=== PATIENT | female | born 1935 | race Caucasian/White ===

== ENCOUNTER 2016-06-01 09:18 | Emergency (ER) | payer OTHER, MEDICARE ==
[~2016-06-01] VITALS: Ht 167.6 cm; Wt 63.5 kg
--- NOTE | ~2016-06-01 | EKG ---
[address] [place] [address] ELECTROCARDIOGRAM REPORT Name: DANAARAVINDARAMIS AMOS Room #: DEP Flash#: [id number] Admission: 06/01/16 Attend Phys: Discharge: 06/01/16 Date of : 31 Report #: [id number] THIS REPORT FOR: //name// [facility] ED Test Date: 2016-06-01 Test Time: 09:55:24 Pat Name: ARAVIND CORTEZ Department: Room: Gender: F Hematologist: David WOO : 1935 Requested By: Jesus Duffy Order Number: [id number] MD: Joey Gilliam Measurements Intervals [place] Rate: 74 P: 7 ID: 173 QRS: 20 QRSD: 87 T: 26 QT: 377 QTc: 419 Interpretive Statements Sinus rhythm Multiple ventricular premature complexes Left ventricular hypertrophy Compared to ECG 05/23/2016 12:30:05 Ventricular premature complex(es) now present Electronically Signed On 06-01-2016 14:58:03 TRANSITIONAL LIVING SPECIALIST by Joey Gilliam [email or web address] <ELECTRONICALLY SIGNED> By: Joey Gilliam MD 06/01/16 1458 Joey Gilliam MD /ALBERTO
[~2016-06-01 09:18] MED LIST: BUTALB-APAP-CA1 EACH PO; CARDIZEM CD180 MG PO; CLONIDINE0.1 PO; DYAZIDE 37.5-21 EACH PO; HARD NAILS2500 MCG PO; LEVOXYL100 MCG PO; NORCO 5-325 TA1 EACH PO; NORVASC5 MG PO; XANAX XR1 MG PO
[2016-06-01 10:01] LABS: HEMOGLOBIN 13.7 gm/dL (12.0-15.0); MCH 28.3 pg (26.0-34.0); MCHC 33.3 % (28.0-37.0); MCV 85.1 fL (80.0-100.0); PLATELET COUNT 286 thou/uL (150-400); RBC 4.82 mil/uL (4.20-5.00); RDW 12.9 % (10.5-14.5); WBC 6.6 thou/uL (4.0-11.0)
[2016-06-01 10:03] LABS: MANUAL DIFF YES
[2016-06-01 10:25] LABS: ANION GAP 8 mmol/L (7-16); BUN 15 mg/dL (7-18); CALCIUM 8.8 mg/dL (8.5-10.1); CHLORIDE 109 mmol/L (98-107); CO2 29 mmol/L (21-32); CREATININE 0.7 mg/dL (0.6-1.3); GLUCOSE 111 mg/dL (70-99); POTASSIUM 3.6 mmol/L (3.5-5.1); SODIUM 146 mmol/L (136-145)
[2016-06-01 10:38] LABS: NT-PRO BRAIN NAT PEPTIDE 221 pg/mL (<300); TROPONIN-I < 0.04 ng/mL (<0.04-0.07)
[2016-06-01 12:23] LABS: ABSOLUTE NEUTROPHILS 3.3 thou/uL (1.4-8.2); TOTAL CELL COUNT 100
[2016-06-01 12:24] LABS: BURR CELLS FEW; LARGE PLATELETS FEW; OVALOCYTES FEW
[2016-06-01 14:15] VITALS: BP 137/71
[2016-07-08] MEDS ORDERED: XANAX 0.25 MG0.25 MG PO (16:26)
[2016-07-08] MEDS ORDERED: MAXZIDE-25 MG1 EACH PO (16:26)
[2016-07-08] MEDS ORDERED: TESSALON PERLE100 MG PO (18:25)
[2016-07-14] MEDS ORDERED: TOPROL XL25 MG PO (21:03)
== END 2016-06-01 14:16 | disposition home or self-care (01) ==
LOC: ER 09:18
PROVIDERS: Emergency Medicine
DX: R06.00 Dyspnea, unspecified (principal); F41.9 Anxiety disorder, unspecified; I26.99 Other pulmonary embolism without acute cor pulmonale; I10 Essential (primary) hypertension; E03.9 Hypothyroidism, unspecified; Z90.711 Acquired absence of uterus with remaining cervical stump; Z90.49 Acquired absence of other specified parts of digestive tract; Z88.6 Allergy status to analgesic agent; Z88.1 Allergy status to other antibiotic agents; Z91.041 Radiographic dye allergy status; Z91.040 Latex allergy status

== ENCOUNTER → 2017-04-25 | Outpatient (CLI) | payer OTHER, MEDICARE ==
[~2017-04-25] MED LIST changes: +MAXZIDE-25 MG1 EACH PO; +TESSALON PERLE100 MG PO; +TOPROL XL25 MG PO; +XANAX 0.25 MG0.25 MG PO
== END ==
LOC: RAD 02:40
DX: Z12.31 Encounter for screening mammogram for malignant neoplasm of breast (principal)

== ENCOUNTER 2017-05-28 21:36 | Emergency (ER) | payer OTHER, MEDICARE ==
[~2017-05-28] VITALS: Ht 167.6 cm; Wt 62.6 kg
--- NOTE | ~2017-05-28 | EKG ---
[place] [address] [facility] [employer] [address] ELECTROCARDIOGRAM REPORT Name: ARAVIND CORTEZNE Room #: DEP [id number] Admission: 05/28/17 Attend Phys: Discharge: 05/29/17 Date of : 31 Report #: [id number] THIS REPORT FOR: //name// [facility] ED Test Date: 2017-05-28 Test Time: 22:07:57 Pat Name: ARAVIND CORTEZ Department: Room: Gender: F Computer Patternmaker: VALERIA : 1935 Requested By: Geronimo Ortega Order Number: [id number] MD: Quentin Ambrosio Measurements Intervals [place] Rate: 63 P: 74 W[place]: 185 QRS: 17 QRSD: 88 T: 23 QT: 427 QTc: 438 Interpretive Statements Sinus rhythm Consider left ventricular hypertrophy Compared to ECG 07/14/2016 18:39:41 Ventricular premature complex(es) no longer present Electronically Signed On 05-29-2017 14:31:29 CLAY STRUCTURE BUILDER AND SERVICER by Quentin Ambrosio [email or web address] <ELECTRONICALLY SIGNED> By: Quentin Ambrosio MD, [facility] 05/29/17 1431 D: 12/2206 06 Quentin Ambrosio MD, FACC /EPI
[2017-05-28 22:56] LABS: URINE BILIRUBIN NEGATIVE (Negative); URINE BLOOD NEGATIVE (Negative); URINE CLARITY CLEAR; URINE COLOR YELLOW; URINE GLUCOSE-RANDOM* NEGATIVE (Negative); URINE KETONES NEGATIVE (Negative); URINE LEUKOCYTES-REFLEX NEGATIVE (Negative); URINE NITRITE-REFLEX NEGATIVE (Negative); URINE PROTEIN (DIPSTICK) NEGATIVE (Negative); URINE SPECIFIC GRAVITY 1.015 (1.005-1.035); URINE UROBILINOGEN 0.2 E.U./dl (0.2-1.0)
[2017-05-28 22:59] LABS: ABSOLUTE NEUTROPHILS 3.6 thou/uL (1.4-8.2); BASOPHILS 0.7 % (0.0-2.0); EOSINOPHILS 2.3 % (0.0-3.0); HEMATOCRIT 40.4 % (37.0-47.0); HEMOGLOBIN 13.8 gm/dL (12.0-15.0); LYMPHOCYTES 39.8 % (24.0-44.0); MCH 29.1 pg (26.0-34.0); MCHC 34.3 g/dL (28.0-37.0); MCV 84.8 fL (80.0-100.0); MONOCYTES 9.6 % (1.0-8.0); PLATELET COUNT 269 thou/uL (150-400); POLYS 47.6 % (36.0-66.0); RBC 4.76 mil/uL (4.20-5.00); RDW 12.7 % (10.5-14.5); WBC 7.6 thou/uL (4.0-11.0)
[2017-05-28 23:02] LABS: ANION GAP 11 mmol/L (7-16); BUN 18 mg/dL (7-18); CHLORIDE 106 mmol/L (98-107); CO2 26 mmol/L (21-32); CREATININE 0.7 mg/dL (0.6-1.0); GLUCOSE 113 mg/dL (74-106); POTASSIUM 3.3 mmol/L (3.5-5.1); SODIUM 143 mmol/L (136-145)
[2017-05-28 23:06] LABS: APTT 24.7 Seconds (24.5-32.8); PROTIME 10.3 Seconds (9.3-11.4)
[2017-05-28 23:11] LABS: ALBUMIN 3.4 g/dL (3.4-5.0); SGOT 34 U/L (15-37); SGPT 53 U/L (30-65); TOTAL BILIRUBIN 0.5 mg/dL (<0.1-1.0); TOTAL PROTEIN 6.5 g/dL (6.4-8.2); TROPONIN-I < 0.04 ng/mL (<0.06)
[2017-05-28] MEDS ORDERED: BUTALB-APAP-CA1 EACH PO (23:22)
== END 2017-05-29 00:48 | disposition home or self-care (01) ==
LOC: ER 21:36
PROVIDERS: Emergency Medicine
DX: I10 Essential (primary) hypertension (principal); F41.9 Anxiety disorder, unspecified; R00.2 Palpitations; G44.209 Tension-type headache, unspecified, not intractable

== ENCOUNTER 2018-04-22 20:30 | Emergency (ER) | payer OTHER, MEDICARE ==
[~2018-04-22] VITALS: Ht 167.6 cm; Wt 61.2 kg
--- NOTE | ~2018-04-22 | EKG ---
[address] [place] [employer] [address] ELECTROCARDIOGRAM REPORT Name: DANAARAVIND Room #: DEP Flash#: [id number] Admission: 04/22/18 Attend Phys: Discharge: 04/22/18 Date of : 31 Report #: [id number] THIS REPORT FOR: //name// [facility] ED Test Date: 2018-04-22 Test Time: 20:54:26 Pat Name: ARAVIND CORTEZ Department: Room: Gender: F Manager Radio: ann : 1935 Requested By: Bertha Colorado Order Number: [id number] MD: Victor Manuel Gomez Measurements Intervals [place] Rate: 76 P: 3 NE: 212 QRS: -8 QRSD: 93 T: 40 QT: 398 QTc: 448 Interpretive Statements Sinus rhythm Borderline prolonged NE interval left ventricular hypertrophy Compared to ECG 05/28/2017 22:07:57 No significant changes Electronically Signed On 04-23-2018 23:42:18 SHUTTLECOCK FEATHER TRIMMER by Victor Manuel Gomez [email or web address] <ELECTRONICALLY SIGNED> By: Victor Manuel Gomez MD 04/23/18 2342 2053 53 Victor Manuel Gomez MD /ALBERTO
[2018-04-22 20:58] LABS: ABSOLUTE NEUTROPHILS 3.7 thou/uL (1.4-8.2); BASOPHILS 0.8 % (0.0-2.0); EOSINOPHILS 2.7 % (0.0-3.0); HEMATOCRIT 42.3 % (37.0-47.0); HEMOGLOBIN 14.5 gm/dL (12.0-15.0); LYMPHOCYTES 45.1 % (24.0-44.0); MCH 29.6 pg (26.0-34.0); MCHC 34.3 g/dL (28.0-37.0); MCV 86.3 fL (80.0-100.0); MONOCYTES 9.6 % (1.0-8.0); PLATELET COUNT 297 thou/uL (150-400); POLYS 41.8 % (36.0-66.0); RDW 13.1 % (10.5-14.5); WBC 8.9 thou/uL (4.0-11.0)
[2018-04-22 21:08] LABS: ANION GAP 8 mmol/L (7-16); BUN 21 mg/dL (7-18); CALCIUM 9.6 mg/dL (8.5-10.1); CHLORIDE 104 mmol/L (98-107); CO2 31 mmol/L (21-32); CREATININE 0.7 mg/dL (0.6-1.0); GLUCOSE 109 mg/dL (74-106); POTASSIUM 3.6 mmol/L (3.5-5.1); SODIUM 143 mmol/L (136-145)
[2018-04-22 21:17] LABS: TROPONIN-I <0.06 ng/mL (<0.06)
[2018-04-22 23:35] VITALS: BP 161/71
== END 2018-04-22 23:36 | disposition home or self-care (01) ==
LOC: ER 20:30
PROVIDERS: Emergency Medicine
DX: I10 Essential (primary) hypertension (principal); R51 Headache; E03.9 Hypothyroidism, unspecified; Z88.1 Allergy status to other antibiotic agents; Z88.5 Allergy status to narcotic agent; Z88.6 Allergy status to analgesic agent; Z88.8 Allergy status to other drugs, medicaments and biological substances; Z91.040 Latex allergy status; Z91.041 Radiographic dye allergy status

== ENCOUNTER → 2018-05-03 | Outpatient (CLI) | payer OTHER, MEDICARE | LOC: RAD | DX: Z12.31 Encounter for screening mammogram for malignant neoplasm of breast (principal) ==

== ENCOUNTER 2018-08-14 19:10 | Emergency (ER) | payer OTHER, MEDICARE ==
[~2018-08-14] VITALS: Ht 165.1 cm; Wt 57.1 kg
[2018-08-14 20:29] LABS: ABSOLUTE NEUTROPHILS 3.7 thou/uL (1.4-8.2); BASOPHILS 0.7 % (0.0-2.0); EOSINOPHILS 1.9 % (0.0-3.0); HEMATOCRIT 38.6 % (37.0-47.0); HEMOGLOBIN 13.4 gm/dL (12.0-15.0); LYMPHOCYTES 35.1 % (24.0-44.0); MCH 29.9 pg (26.0-34.0); MCHC 34.6 g/dL (28.0-37.0); MCV 86.2 fL (80.0-100.0); MONOCYTES 10.1 % (1.0-8.0); PLATELET COUNT 277 thou/uL (150-400); POLYS 52.2 % (36.0-66.0); RBC 4.48 mil/uL (4.20-5.00); RDW 12.5 % (10.5-14.5); WBC 7.2 thou/uL (4.0-11.0)
[2018-08-14 20:40] LABS: ANION GAP 7 mmol/L (7-16); BUN 19 mg/dL (7-18); CHLORIDE 103 mmol/L (98-107); CO2 30 mmol/L (21-32); CREATININE 0.7 mg/dL (0.6-1.0); GLUCOSE 109 mg/dL (74-106); POTASSIUM 3.6 mmol/L (3.5-5.1); SODIUM 140 mmol/L (136-145)
[2018-08-14 20:45] LABS: TROPONIN-I <0.06 ng/mL (<0.06)
[2018-08-14 21:43] LABS: URINE BILIRUBIN NEGATIVE (Negative); URINE BLOOD NEGATIVE (Negative); URINE CLARITY CLEAR; URINE COLOR YELLOW; URINE GLUCOSE-RANDOM* NEGATIVE (Negative); URINE KETONES NEGATIVE (Negative); URINE LEUKOCYTES TRACE (Negative); URINE NITRITE NEGATIVE (Negative); URINE PROTEIN (DIPSTICK) NEGATIVE (Negative); URINE UROBILINOGEN 0.2 E.U./dl (0.2-1.0)
[2018-08-15 00:45] VITALS: BP 148/77
--- NOTE | 2018-08-15 09:06 | EKG ---
[address] [address] ELECTROCARDIOGRAM REPORT Name: ARAVIND CORTEZNE [id number] ������������������ Admission: 08/14/18 ������������������ Attend Phys: Discharge: 08/15/18 ������������������ Date of : 31 Report #: [id number] ����������������������������������������������������������������� [id number] THIS REPORT FOR: //name// [facility] ED Test Date: 2018-08-14 Test Time: 20:10:16 Pat Name: ARAVIND CORTEZ Department: Room: Gender: F Mobile Home Set Up Person: SORAYA : 1935 Requested By: Ansley Quintero Order Number: [id number] MD: Quentin Ambrosio Measurements Intervals [place] Rate: 60 P: 68 W[place]: 183 QRS: 4 QRSD: 98 T: 21 QT: 430 QTc: 430 Interpretive Statements Sinus rhythm Atrial premature complex Compared to ECG 04/22/2018 20:54:26 Atrial premature complex(es) now present Electronically Signed On 08-15-2018 9:06:18 CDT by Qeuntin Ambrosio [email or web address] ��������������������������������������������� <ELECTRONICALLY SIGNED> ���������������������������������������� By: Quentin Ambrosio MD, [facility] ��������������������������������������������� 08/15/18905 09 09 Quentin Ambrosio MD, FACC /EPI
== END 2018-08-15 04:36 | disposition home or self-care (01) ==
LOC: ER 19:10
PROVIDERS: Student in an Organized Health Care Education/Training Program
DX: I10 Essential (primary) hypertension (principal); R42 Dizziness and giddiness; F41.9 Anxiety disorder, unspecified; E03.9 Hypothyroidism, unspecified; Z95.5 Presence of coronary angioplasty implant and graft; Z90.711 Acquired absence of uterus with remaining cervical stump; Z90.49 Acquired absence of other specified parts of digestive tract; Z88.1 Allergy status to other antibiotic agents; Z88.6 Allergy status to analgesic agent; Z91.040 Latex allergy status; Z91.041 Radiographic dye allergy status; Z88.8 Allergy status to other drugs, medicaments and biological substances

== ENCOUNTER 2018-12-18 21:52 | Inpatient (IN) | payer OTHER, MEDICARE ==
[~2018-12-18] VITALS: Ht 152.4 cm; Wt 63.5 kg
[2018-12-18 22:15] VITALS: BP 149/70
[2018-12-18 23:56] LABS: ABSOLUTE NEUTROPHILS 3.5 thou/uL (1.4-8.2); BASOPHILS 0.9 % (0.0-2.0); EOSINOPHILS 2.8 % (0.0-3.0); HEMATOCRIT 39.9 % (37.0-47.0); HEMOGLOBIN 13.7 gm/dL (12.0-15.0); LYMPHOCYTES 37.7 % (24.0-44.0); MCH 29.5 pg (26.0-34.0); MCHC 34.3 g/dL (28.0-37.0); MCV 85.8 fL (80.0-100.0); MONOCYTES 11.9 % (1.0-8.0); PLATELET COUNT 286 thou/uL (150-400); POLYS 46.7 % (36.0-66.0); RBC 4.65 mil/uL (4.20-5.00); RDW 13.1 % (10.5-14.5); WBC 7.5 thou/uL (4.0-11.0)
[2018-12-19 00:02] LABS: ANION GAP 5 mmol/L (7-16); BUN 19 mg/dL (7-18); CALCIUM 9.1 mg/dL (8.5-10.1); CHLORIDE 100 mmol/L (98-107); CO2 33 mmol/L (21-32); CREATININE 0.8 mg/dL (0.6-1.0); GLUCOSE 100 mg/dL (74-106); POTASSIUM 3.7 mmol/L (3.5-5.1); SODIUM 138 mmol/L (136-145)
[2018-12-19 00:05] LABS: URINE BILIRUBIN NEGATIVE (Negative); URINE BLOOD 2+ (Negative); URINE CLARITY CLEAR; URINE COLOR YELLOW; URINE GLUCOSE-RANDOM* NEGATIVE (Negative); URINE KETONES NEGATIVE (Negative); URINE NITRITE-REFLEX NEGATIVE (Negative); URINE PROTEIN (DIPSTICK) NEGATIVE (Negative); URINE SPECIFIC GRAVITY <= 1.005 (1.005-1.035); URINE UROBILINOGEN 0.2 E.U./dl (0.2-1.0)
[2018-12-19 00:10] LABS: TROPONIN-I <0.06 ng/mL (<0.06)
[2018-12-19 00:17] LABS: SQUAMOUS 4-10 Moderate /LPF (0-3); URINE LEUKOCYTES-REFLEX 2+ (Negative)
[2018-12-19 00:18] LABS: CASTS None Seen /LPF (None Seen); CRYSTALS None Seen /LPF (None Seen); MUCUS 0-3 Light strn/LPF (None Seen); WBC CLUMPS Moderate (None Seen)
[2018-12-19 03:11] VITALS: BP 175/66
[2018-12-19] MEDS ORDERED: SYNTHROID25 MC1 PO (03:18)
[2018-12-19] MEDS ORDERED: METOPROLOL SUCC50 MG PO (03:19)
[2018-12-19] MEDS ORDERED: TRIAMTERENE-HC1 EAC2 PO (03:22)
[2018-12-19] MEDS ORDERED: XANAX 0.25 MG0.25 MG PO (03:23)
--- NOTE | 2018-12-19 07:53 | NUR ---
ADMITTED FROM ER UNDER 'S CARE. ADMITTED WITH UTI AND WEAKNESS. MED REC COMPLETED AND HOME MEDS STARTED PER [employer] DISPATCHER ONCALL FOR MANI. NO S/S ACUTE DISTRESS NOTED REPORTED AT THIS TIME. CARE STRANSFERRED TO DAY RN AT THIS TIME.
[2018-12-19 08:22] VITALS: BP 134/54
[2018-12-19 09:15] VITALS: BP 136/64
--- NOTE | 2018-12-19 13:25 | NUR ---
Received awake on bed. Due medications given as prescribed- able to swallow tablet w/o difficulty. On room air. A+O. On room air. With NS at 75cc/hr, infusing well at L FA. Falls risk- falls bundle in place. Pt assisted in ADLs. Able to go to the bathroom with walker, gait belt and on stand by assist. Pt seen by Dr Rubalcava this morning. Pt on 2 laxatives, open her bowels 2x- witheld laxatives as pt had soft stools, 2 episodes already since this morning.
[2018-12-19 15:07] VITALS: BP 124/53
--- NOTE | 2018-12-19 15:47 | NUR ---
PT ADMITTED RELATED TO WEAKNESS, UTI. CM REVIEWED CHART AND SPOKE WITH CARE TEAM. CM MET WITH PT AT BEDSIDE THIS DAY. PT IS A&O X4. CM ROLE INTRODCUED. PT INDICATED SHE LIVES ALONE IN AN APARTMENT WITH ELEVATOR ACCESS AND NO STEPS TO ENTER. 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 PT INDICATED NO DME OR HH HX. PT INDICATED HER CONTACT IS MARCIO FERNÁNDEZ HER CPA SHE DIDN'T HAVE HIS NUMBER. PT INDICATED SHE HOPES TO RETURN HOME ONCE MEDICALLY STABLE. CM TO FOLLOW INDICATED WITH DC PLANNING.
[2018-12-19 19:13] VITALS: BP 129/66
[2018-12-20 03:55] VITALS: BP 110/47
[2018-12-20 07:35] VITALS: BP 138/64
--- NOTE | 2018-12-20 07:50 | EKG ---
[address] [place] [address] ELECTROCARDIOGRAM REPORT Name: ARAVIND CORTEZ Room #: 461-P ADM IN M.R.#: [id number] ������������������ Admission: 12/19/18 ������������������ Attend Phys: Carmen Villalba Discharge: ������������������ Date of : 31 Report #: [id number] ����������������������������������������������������������������� [id number] THIS REPORT FOR: //name// [facility] ED Test Date: 2018-12-18 Test Time: 22:20:11 Pat Name: ARAVIND CORTEZ Department: Room: 46 Gender: F Protohistorian: SILVANO : 1935 Requested By: Alfonzo Cruz Order Number: [id number] MD: Quentin Ambrosio Measurements Intervals [place] Rate: 62 P: 48 [place]: 197 QRS: 5 QRSD: 97 T: 36 QT: 417 QTc: 424 Interpretive Statements Sinus rhythm No significant abnormality Compared to ECG 08/14/2018 20:10:16 Atrial premature complex(es) no longer present Electronically Signed On 12-20-2018 7:50:24 CDT by Quentin Ambrosio [email or web address] ��������������������������������������������� <ELECTRONICALLY SIGNED> ���������������������������������������� By: Quentin Ambrosio MD, [facility] ��������������������������������������������� 12/20/18 0750 19 19 Quentin Amrbosio MD, [facility] /EPI
--- NOTE | 2018-12-20 11:58 | NUR ---
Received awake on bed. Due medications given as prescribed- able to swallow tablets w/o difficulty. A+Ox2- oriented to person and place, confused and forgetful. Up with walker, gaitbelt and standby assist. With SL at L FA- intact and flushing well. Falls risk- falls bundle in place. Pt seen by Dr Lloyd- pt mentioned that she wants to go [facility]- Dr Lloyd informed; a/w discharge orders. CM informed, will set up transport once with discharge orders.
[2018-12-20] MEDS ORDERED: MIRALAX17 GM PO (12:14)
[2018-12-20] MEDS ORDERED: CEFDINIR300 MG PO (12:14)
[2018-12-20] MEDS ORDERED: SENNA-TIME S T1 EACH PO (12:14)
[2018-12-20 12:39] VITALS: BP 138/64
--- NOTE | 2018-12-20 13:53 | NUR ---
CARE TEAM INDICATED THAT PT IS MEDICALLY STABLE TO DC HOME THIS DAY. PT INDICATED THAT SHE NEEDS TRANSPORT HOME. PT INDICATED SHE ISN'T COMFORTABLE USING A CAB. CM REQUESTED AND RECIEVED PERMISSION TO ARRANGE TRANSPORT THROUGH [facility]. TRANSPORT IS ARRANGED AND THEY ARRIVED AROUND 1:54PM. NO OTHER CM INTERVENTION INDICATED. CASE CLOSED.
[2018-12-20 15:26] VITALS: BP 138/64
== END 2018-12-20 14:30 | disposition home health service (06) | DRG 690 ==
LOC: ER 21:52 → 4W 12-19 01:30 → EROBS 12-19 01:30 → 4W 12-19 02:29
PROVIDERS: Emergency Medicine; ADMIT Hospitalist
DX: N39.0 Urinary tract infection, site not specified (principal); F41.9 Anxiety disorder, unspecified; I10 Essential (primary) hypertension; E03.9 Hypothyroidism, unspecified; Z60.2 Problems related to living alone; K59.00 Constipation, unspecified; Z90.49 Acquired absence of other specified parts of digestive tract; Z87.310 Personal history of (healed) osteoporosis fracture; Z88.8 Allergy status to other drugs, medicaments and biological substances; Z91.041 Radiographic dye allergy status; Z88.1 Allergy status to other antibiotic agents; Z91.040 Latex allergy status; Z90.711 Acquired absence of uterus with remaining cervical stump; Z79.899 Other long term (current) drug therapy
CPT/HCPCS: 10040

== ENCOUNTER → 2019-05-07 | Outpatient (CLI) | payer OTHER, MEDICARE ==
[~2019-05-07] MED LIST changes: +CEFDINIR300 MG PO; +METOPROLOL SUCC50 MG PO; +MIRALAX17 GM PO; +SENNA-TIME S T1 EACH PO; +SYNTHROID25 MC1 PO; +TRIAMTERENE-HC1 EAC2 PO
== END ==
LOC: RAD 09:46
DX: Z12.31 Encounter for screening mammogram for malignant neoplasm of breast (principal)

== ENCOUNTER → 2019-06-27 | Outpatient (CLI) | payer OTHER, MEDICARE | END | disposition home or self-care (01) | LOC: SJCVCIMAG 10:12 | DX: I65.23 Occlusion and stenosis of bilateral carotid arteries (principal); E78.5 Hyperlipidemia, unspecified; I10 Essential (primary) hypertension; I49.3 Ventricular premature depolarization; F41.1 Generalized anxiety disorder; Z90.710 Acquired absence of both cervix and uterus; Z79.899 Other long term (current) drug therapy ==

== ENCOUNTER 2020-04-07 10:38 | Emergency (ER) | payer OTHER ==
[~2020-04-07] VITALS: Ht 167.6 cm; Wt 59.0 kg
[~2020-04-07 10:38] MED LIST changes: -CARDIZEM CD180 MG PO; +CARTIA XT240 M1 PO
[2020-04-07 10:39] VITALS: BP 141/76
--- NOTE | 2020-04-07 14:11 | EKG ---
[facility] [place] [address] ELECTROCARDIOGRAM REPORT Name: ARAVIND CORTEZ Room #: [facility]#: [id number] Admission: 04/07/20 Attend Phys: Discharge: Date of : 31 Report #: [id number] THIS REPORT FOR: cc: FAM - Family physician unknown FAM - Family physician unknown Danilo Jimenez MD [facility] ~ THIS REPORT FOR: //name// [facility] ED Test Date: 2020-04-07 Test Time: 11:37:30 Pat Name: ARAVIND CORTEZ Department: Room: Gender: F Press Operator [employer]ocks: ANNA : 1935 Requested By: Uzma Ortiz Order Number: [id number] MD: Danilo Jimenez Measurements Intervals [place] Rate: 88 P: 59 [place]: 157 QRS: 59 QRSD: 89 T: 41 QT: 385 QTc: 466 Interpretive Statements Sinus rhythm Compared to ECG 12/18/2018 22:20:11 No significant changes Electronically Signed On 04-07-2020 14:11:24 AUXILIARY OPERATOR by Danilo Jimenez [email or web address] <ELECTRONICALLY SIGNED> By: Danilo Jimenez MD, FACC 04/07/20 1411 1137 36 Danilo Jimenez MD, FACC /EPI
[2020-04-07 14:51] LABS: ABSOLUTE NEUTROPHILS 6.8 thou/uL (1.4-8.2); BASOPHILS 0.6 % (0.0-2.0); EOSINOPHILS 0.6 % (0.0-3.0); HEMATOCRIT 35.4 % (37.0-47.0); LYMPHOCYTES 21.3 % (24.0-44.0); MCH 29.5 pg (26.0-34.0); MCV 86.8 fL (80.0-100.0); MONOCYTES 11.5 % (1.0-8.0); PLATELET COUNT 348 thou/uL (150-400); RBC 4.08 mil/uL (4.20-5.00); RDW 13.1 % (10.5-14.5); WBC 10.3 thou/uL (4.0-11.0)
[2020-04-07 15:04] LABS: PROTIME 10.2 Seconds (9.3-11.4)
[2020-04-07 15:07] LABS: ALBUMIN 3.2 g/dL (3.4-5.0); TOTAL BILIRUBIN 0.6 mg/dL (0.2-1.0); TOTAL PROTEIN 5.7 g/dL (6.4-8.2)
[2020-04-07 15:13] LABS: POTASSIUM 2.9 mmol/L (3.5-5.1)
[2020-04-07 15:28] LABS: URINE BILIRUBIN NEGATIVE (Negative); URINE BLOOD NEGATIVE (Negative); URINE CLARITY CLEAR; URINE COLOR YELLOW; URINE GLUCOSE-RANDOM* NEGATIVE (Negative); URINE KETONES NEGATIVE (Negative); URINE LEUKOCYTES-REFLEX NEGATIVE (Negative); URINE NITRITE-REFLEX NEGATIVE (Negative); URINE PROTEIN (DIPSTICK) NEGATIVE (Negative); URINE UROBILINOGEN 0.2 E.U./dl (0.2-1.0)
[2020-04-07 18:43] LABS: CHOLESTEROL 152 mg/dL (<200); HDL CHOLESTEROL 58 mg/dL (>40); LDL CHOLESTEROL 81 mg/dL (<100); TC:HDL 2.6 Ratio (Not establshd); TRIGLYCERIDE 69 mg/dL (<150); VLDL 14 mg/dL (<40)
[2020-04-07 19:19] LABS: TSH 1.276 uIU/mL (0.358-3.740)
[2020-04-07 19:56] LABS: FOLIC ACID 33.8 ng/mL (8.6-58.9)
[2020-04-07 21:19] VITALS: BP 135/81
--- NOTE | 2020-04-08 03:58 | NUR ---
85 Y.O. FEMALE HAS BEEN RESIDING IN INDEPENDENT LIVING AND HAS IN THE LAST MONTH DEVELOPED A SELF CARE FAILURE, AGRESSION X1 WITH STAFF. SON, HSAUNA CORTEZ IS HER DPOA. CURRENT MEDICAL ISSUES ARE ABDOMINAL PAIN, CONSTIPATION, HEMARRHOIDS, DISTENDED BELLY, BEING TREATED WITH mAG CITRATE, NO RESULTS OF THIS WRITING. ANUS SWOLLEN, HEMARRHOIDS REPORTED IN HX. HYPOKALEMIA, BEING TREATED WITH 40MEQ OF POTASSIUM. A&OX2 TO PERSON AND , NOT ORIENTED TO CURRENT DATE. PLEASANT AFFECT NOTED, COOPERATIVE WITH CARE, CONFUSED AND SHORT MEMORY. ASKING WHAT FLOOR SHE IS ON AND HOW TO FIND THE ROOM SHE WILL BE GOING TO WHEN LEAVING THE ER. ON ROOM AIR, 20 GUAGE S.L IV TO RIGHT FORE ARM. LIKES TO BE CALLED CHELY. BRUISE NOTED TO L HAND. RESTING CALM AND HAS EYES CLOSED, RESPIRATIONS EVEN AND UNLABORED.
[2020-04-08 05:28] LABS: HEMATOCRIT 33.5 % (37.0-47.0); HEMOGLOBIN 11.4 gm/dL (12.0-15.0); MCH 29.2 pg (26.0-34.0); MCHC 34.1 g/dL (28.0-37.0); MCV 85.7 fL (80.0-100.0); PLATELET COUNT 351 thou/uL (150-400); RBC 3.91 mil/uL (4.20-5.00); RDW 13.1 % (10.5-14.5); WBC 7.4 thou/uL (4.0-11.0)
[2020-04-08 05:46] LABS: CALCIUM 8.1 mg/dL (8.5-10.1); CREATININE 0.9 mg/dL (0.6-1.0); POTASSIUM 3.5 mmol/L (3.5-5.1)
[2020-04-08 07:56] LABS: ABSOLUTE NEUTROPHILS 5.2 thou/uL (1.4-8.2); PLATELET ESTIMATE NORMAL
== END 2020-04-08 07:02 ==
LOC: ER 10:38 → EROBS 18:43 → SBH 04-08 07:01 → ER 04-08 07:02
PROVIDERS: Nurse Practitioner; Physician Assistant
DX: R41.82 Altered mental status, unspecified (principal); R33.9 Retention of urine, unspecified; E87.6 Hypokalemia; I10 Essential (primary) hypertension; E03.9 Hypothyroidism, unspecified; Z90.710 Acquired absence of both cervix and uterus; Z90.49 Acquired absence of other specified parts of digestive tract; Z79.899 Other long term (current) drug therapy; Z88.8 Allergy status to other drugs, medicaments and biological substances; Z88.1 Allergy status to other antibiotic agents; Z91.041 Radiographic dye allergy status; Z91.040 Latex allergy status; Z91.048 Other nonmedicinal substance allergy status; Z20.828 Contact with and (suspected) exposure to other viral communicable diseases

== ENCOUNTER 2020-04-08 03:21 | Inpatient (IN) | payer OTHER ==
[~2020-04-08] VITALS: Ht 167.6 cm; Wt 55.6 kg
[2020-04-08 07:22] VITALS: BP 147/84
--- NOTE | 2020-04-08 08:45 | NUR ---
PATIENT ADMITTED TO [facility] AT 0704 TO ROOM 527-A. PATIENT ADMITTED FOR MAJOR NEURO COGNITIVE DISORDER WITH BEHAVIORS PATIENT ARRIVED IN WC AND TRANSFERED TO BED. PATIENT ALERT, CALM AND COOPERATIVE. PATIENT ANSWERS QUESTIONS APPROPRIATELY. NO N/O PAIN, LS CLEAR, BS ACTIVE. PATIENT CONFUSED AND DOES NOT KNOW WHY SHE IS HER. PATIENT ORIENTED TO SELF AND IS AWARE THAT SHE IS IN THE HOSPITAL. PATIENT TO BATHROOM USING WALKER, WITH ASSIST X1. PATIENT VOIDED X1. SWELLING TO ANUS NOTED, PATIENT C/O DISCOMFORT TO BOTTOM. BRRIER CREAM APPLIED. PATIENT OUT TO DAYROOM FOR BREAKFAST, WITH PILLOW UNDER BOTTOM. PATIENT ATE 100% OF MEAL. MEDICATION TAKEN WHOLE WITHOUT DIFFICULTY. PATIENT PRESENT IN GROUP AT THIS TIME.
--- NOTE | 2020-04-08 13:59 | NUR ---
SW completed Slums with Pt. Pt scored a 12/26. a copy of the Slums was placed in the Pt's chart
--- NOTE | 2020-04-08 14:54 | NUR ---
AMAIRANI and Dr. Coello attempted to contact Pt's DPOA, Moira Darnell [phone]. Dr. coello left a message for a call back
--- NOTE | 2020-04-08 16:06 | NUR ---
PATIENT SITTING IN DAYROOM MOST OF THE DAY. AT 1500 PATIENT AMB TO ROOM AND TO TOILET. PATIENT NOTED WITH STOOL ON PANTS AND IN BRIEF. PATIENT UNAWARE OF BM STOOL RUNS OUT. PATIENT ON TOILET AND LOOSE STOOL RUNNING OUT PATIENT STANDS ABOVE TOILET WITH PATIENT MOANING. PATIENT TO BED AND CLEANED UP WHILE OBSERVING RECTUM AREA. REDNESS AND SWELLING NOTED. HEMORRHOIDAL OINTMENT APPLIED WITH PATIENT LAYING ON SIDE. PATIENT REMAINS IN BED TO REST BOTTOM. 1615 PATIENT AMB TO DAYROOM, SITS IN CHAIR WITH PILLOW UNDER BOTTOM.
[2020-04-08 19:38] VITALS: BP 120/71
--- NOTE | 2020-04-09 04:08 | NUR ---
04-08-20 CARE TRANSFERRED AT 1900 OBSERVED PT LEFT SIDE LYING IN BED RESTING WITH EYES CLOSED. 1930 PT AAOX3, VSS, RR EVEN AND NONLABORED, PT REPORTS PAIN IN RECTUM AREA AND SCALES 4 ON 0-10 SCALE. PT DENIES SI/HI. PT PRESENTS CALM AND COOPERATIVE BUT NOTED CONFUSION WHEN PT STATED THAT SHE IS 63 YEARS OLD. PT PLEASANT AND EASILY CONVERSATION ABOUT MULTI OF TOPICS. DURING MEDICATION ADMIN PT HAD NO DIFFICULTIES. LATER ADJUSTED BED FOR PT COMFORT, LOCKED AND ALARM SET. ZERO S/S OF ACUTE DISTRESS NOTED, PT WILL CONTINUE TO BE MONITOR PER [facility] PROTOCOL.
[2020-04-09 06:58] LABS: CALCIUM 8.3 mg/dL (8.5-10.1); CREATININE 0.8 mg/dL (0.6-1.0); MAGNESIUM 2.5 mg/dL (1.8-2.4); POTASSIUM 3.6 mmol/L (3.5-5.1)
[2020-04-09 07:46] VITALS: BP 135/85
--- NOTE | 2020-04-09 09:32 | NUR ---
ASSUMED CARE OF PATIENT, PATIENT IN DAYROOM SITTING WITH PEERS. PATIENT HAD FEW BITES OF BREAKFAST STATING "I CAN NOT SWALLOW" AFTER SOME ENCOURAGEMENT PATIENT REFUSES TO EAT. MEDICATION TAKEN WHOLE WITH ENCOURAGEMENT. PATIENT TO BATHROOM WITH NO RESULTS. PRESENT IN GROUP AT THIS TIME.
[2020-04-09 11:19] LABS: URINE BILIRUBIN NEGATIVE (Negative); URINE BLOOD NEGATIVE (Negative); URINE CLARITY CLOUDY; URINE COLOR YELLOW; URINE GLUCOSE-RANDOM* NEGATIVE (Negative); URINE KETONES NEGATIVE (Negative); URINE NITRITE-REFLEX NEGATIVE (Negative); URINE PROTEIN (DIPSTICK) NEGATIVE (Negative); URINE SPECIFIC GRAVITY 1.025 (1.005-1.035); URINE UROBILINOGEN 0.2 E.U./dl (0.2-1.0)
[2020-04-09 11:21] LABS: URINE LEUKOCYTES-REFLEX 1+ (Negative)
[2020-04-09 11:46] LABS: BACTERIA-REFLEX >30 Many /HPF (None Seen); CASTS None Seen /LPF (None Seen); CRYSTALS None Seen /LPF (None Seen); SQUAMOUS None Seen /LPF (0-3); URINE RBC None Seen /HPF (0-2)
--- NOTE | 2020-04-09 12:00 | NUR ---
1045 BLADDER SCAN COMPLETED ON PATIENT WITH 866 ML ON FIRST SCAN AND 1366 ML ON SECOND SCAN. 16 FR. MEZA INSERTED VIA SENIOR CENTER DIRECTOR. WITH 1950 OUT OF MARCOS COLOR URINE AND A ODOR NOTED. URINE COLLECTED FOR UA. BS CHECKED WITH HYPO ACTIVE BS NOTED. PATIENT REMAINES IN BED. SAÚL HDZ COMPLETED. DE ICER ELEMENT WINDER RECIEVED A CALL FROM CARLOS FERNÁNDEZ, PHONE CONSENT RECIEVED. MARCIO FERNÁNDEZ PHONE [phone] OFFICE/ [phone] CELL 1200 PATIENT C/O OF FEELING UNEASY SHE STATES "I HAVE A BAD FEELING IF SOMETHING IS GOING TO HAPPEN AND I DO NOT WANT TO BE ALONE". SHE ALSO STATES "I HAVE THIS INNER FEELING THAT I HAVE LEARNED TO BE AWARE OF BECAUSE IF I DO NOT LISTEN TO THEM THEN SOMEONE CAN IT HAS HAPPENED BEFORE". PATIENT SAYS THIS FEELING IS FROM WITHIN AND HARD TO EXPLAIN. PATIENT DOES NOT WANT TO BE ALONE AND DE ICER ELEMENT WINDER ASKED PATIENT TO COME TO DAYROOM BUT PATIENT REFUSES TO DO SO. WILL CONTINUE TO OBSERVE
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
--- NOTE | 2020-04-09 16:04 | NUR ---
PATIENT HAD A LARGE AMT OF BROWN LOOSE STOOL IN TOILET AND ON FLOOR. PATIENT CLEANED UP AND BACK TO BED. PATIENT VOICED EMBARRASSEMENT AND STATES "I CAN NOT BELIEVE THIS, I SHOULD NOT BE HERE FOR THIS". PATIENT REFUSES LACTULOSE AT THIS TIME.
--- NOTE | 2020-04-09 17:25 | NUR ---
3867 PATIENT CLEANED UP AND SITS UP IN BED FOR DINNER. PATIENT GIVEN REGULAR DIET PER DR ORDER AND PATIENT REQUEST. MULTIPLE LAUNCH ROCKET SYSTEM CREWMEMBER STEPS OUT OF ROOM TO GET A DRINK, WHEN RETURNED PATIENT C/O CHEST PAIN, NAUSEA AND SPIT UP SCANT AMT IN [place]. CONTINUES TO C/O CHEST PAIN. VS BP-137/72 P-60-68, RESP- 16 O2 SATS 99% ON RA. DR ENRIQUE REIS AND DR RICHEY. ORDERS RECIEVED
[2020-04-09 17:30] VITALS: BP 137/72
--- NOTE | 2020-04-09 18:37 | NUR ---
PATIENT CLEANED UP X3 IN A 10 MIN PERIOD. LOOSE STOOL POORING OUT WITH ANY MOVEMENT FROM PATIENT. PATIENT CONTINUES TO C/O CHEST PAIN AND STATES A DECREASE IN PRESSURE. ORDERS RECIEVED FROM DR RICHEY.
[2020-04-09 19:58] VITALS: BP 124/54
[2020-04-09 23:50] VITALS: BP 124/62
[2020-04-10 04:00] VITALS: BP 124/60
--- NOTE | 2020-04-10 04:34 | NUR ---
04-09-20 CARE TRANSFERRED 1899. 1949 PT AAOX2, VSS, RR EVEN AND NONLABORED ON RA. PT DENIES SI/HI. PT WAS CLEAN UP FROM LARGE LOOSE BM, PT REPORTS PAIN AT A 4 ON 0-10 SCALE, BUT DENIES WANTING ANY TYLENOL, HCP CONSULTED AND ALL STOOL PROMOTORS ON HOLD. PT HAS HAD 5 SMALL BM ALL LOOSE. OF NOTE, PT HAS BEEN CLEAN UP WITH WARM SOAP AND WATER AND BARRIER CREAM APPLIED. LATER PT REPORTED FEELING NASAUTED AND ZOFRAN SL 4MG TAB ADMIN. 2ND B/P 124/62, P 64, R 16, 02SAT 98% RA RR EVEN AND NONLABORED ON RA. PT BED WAS ADJUSTED FOR COMFORT. ZERO S/S OF ACUTE DISTRESS NOTED, PT WILL CONTINUE TO BE MONITOR PER [facility] PROTOCOL.
[2020-04-10 07:38] VITALS: BP 128/70
[2020-04-10 09:43] VITALS: BP 128/70
--- NOTE | 2020-04-10 10:29 | NUR ---
1030 RESUMMED CARE FROM OVERNIGHT SHIFT THUS AM, PATIENT CALM QUIET SITTING IN DAY ROOM. PATIENT ATE LIQUID BREAKFAST TOOK MEDICATION WITHOUT INCIDENCE. PATIENTS ABDOMEN SOFT FLAT BOWEL SOUNDS PRESENT LUNGS CLEAR PATIENT HAS CATHETER IN PLACE. PATIENT HAS LARGE HEMMOROIDS IN BUTTOCK WHICH WE USE PREPARATION EIGHT FOR COMFORT. PATIENT DENIES SI/HI/AH/VH AT PRESENT PATIENT ORIENTED TO SELF PLACE. PATIENT COOPERATIVE CALM WILL CONTINUE TO MONITOR PATIENT FOR SAFETY AND BEHAVIORS.
[2020-04-10 11:29] VITALS: BP 138/72
--- NOTE | 2020-04-10 12:17 | EKG ---
[facility] [place] [address] ELECTROCARDIOGRAM REPORT Name: ARAVIND CORTEZ Room #: [facility] ADM IN M.R.#: [id number] Admission: 04/08/20 Attend Phys: Jaquan Weber DO Discharge: Date of : 31 Report #: [id number] THIS REPORT FOR: cc: FAM - Family physician unknown FAM - Family physician unknown Danilo Jimenez MD [facility] ~ THIS REPORT FOR: //name// [facility] Test Date: 2020-04-09 Test Time: 17:52:29 Pat Name: ARAVIND CORTEZ Department: Room: [facility] Gender: F Watch Assembly Instructor: OSIEL : 1935 Requested By: Jaquan Weber Order Number: [id number] : Danilo Jimenez Measurements Intervals [place] Rate: 68 P: 76 TN: 191 QRS: 55 QRSD: 91 T: 43 QT: 424 QTc: 451 Interpretive Statements Sinus rhythm Consider left ventricular hypertrophy Compared to ECG 04/07/2020 11:37:30 No significant changes Electronically Signed On 04-10-2020 12:17:10 CEMENT MASON HELPER by Danilo Jimenez [email or web address] <ELECTRONICALLY SIGNED> By: Danilo Jimenez MD, FACC 04/10/20 1217 175 51 Danilo Jimenez MD, [facility] /EPI
[2020-04-10 19:00] VITALS: BP 122/60
--- NOTE | 2020-04-10 21:16 | NUR ---
Care of patient assumed at 1915: Patient laying in bed at start of shift. Awake, alert and oriented to person only. Patient confused and forgetful. Patient able to state that she is not in her apartment but is unable to identify further current location. Unable to state date. States that she is here for an appointment with Dr. Ambrosio. Patient calm, pleasant and cooperative. Denies SI/HI/AH/VH. No delusional or paranoia behaviors observed. Denies anxiety and depression. No aggression or agitation observed. Scott intact, to DD, dimitris colored urine. Fluids encouraged with each encounter. Hesistant on drinking any fluids offered. Takes small sips at a time. Denies pain or discomfort. Incontinent of loose stool. Cooperative with ludy care and linen change. Took HS medication whole without difficulty. Resting quietly in bed at this time.
[2020-04-11 09:04] VITALS: BP 130/64
--- NOTE | 2020-04-11 17:27 | NUR ---
PATIENT AGREEABLE AND PLEASANT. MED COMPLIANT. HAD BOWEL MOVEMENT. STARTED ON FLOMAX AND MACROBID TODAY. DR. NUNEZ ASSESSED AND GAVE ORDER TO DISCHARGE MEZA. TOLERATED WELL. PATIENT CALM NO AGGRESSION OR AGITATION NOTED. AMBUALTES WITH WALKER - VOIDED 200 CC AFTER MEZA D/C. NO PAIN DISCOMFORT TODAY. REMAINS CONFUSED BUT ALERT AND RESPONSIVE TO QUESTIONS ADDRESSED TO HIM.
--- NOTE | 2020-04-11 17:54 | NUR ---
PT. APPROACHED THIS RN THIS EVENING. 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 DR. RICHEY ON THE UNIT AND SPOKE WITH THE PT. ABOUT THIS.
[2020-04-11 19:08] VITALS: BP 123/64
--- NOTE | 2020-04-12 05:13 | NUR ---
Assumed care of pt @ 1900. Pt calm et cooperative this shift. Took medications whole without difficulty. Ambulates ad leatha with steady gait. VSWNL. Health assessment with no abnormalities noted at present time. Denies SI/HI/AVH at present time. Isolated in room most of shift. Currently resting in bed with eyes closed. Will continue to monitor per unit protocol.
[2020-04-12 10:00] LABS: ABSOLUTE NEUTROPHILS 9.3 thou/uL (1.4-8.2); BASOPHILS 0.4 % (0.0-2.0); EOSINOPHILS 0.8 % (0.0-3.0); HEMATOCRIT 33.4 % (37.0-47.0); HEMOGLOBIN 10.8 gm/dL (12.0-15.0); MCH 28.4 pg (26.0-34.0); MCHC 32.5 g/dL (28.0-37.0); MCV 87.4 fL (80.0-100.0); MONOCYTES 7.8 % (1.0-8.0); PLATELET COUNT 334 thou/uL (150-400); RBC 3.82 mil/uL (4.20-5.00); RDW 13.5 % (10.5-14.5); WBC 12.1 thou/uL (4.0-11.0)
[2020-04-12 10:14] LABS: ALBUMIN 2.5 g/dL (3.4-5.0); CALCIUM 7.9 mg/dL (8.5-10.1); CREATININE 1.2 mg/dL (0.6-1.0); MAGNESIUM 2.6 mg/dL (1.8-2.4); POTASSIUM 3.8 mmol/L (3.5-5.1); TOTAL BILIRUBIN 0.2 mg/dL (0.2-1.0); TOTAL PROTEIN 5.6 g/dL (6.4-8.2)
--- NOTE | 2020-04-12 11:35 | NUR ---
DYSPHORIC MOOD NOTED UPON INITAL ASSESSMENT THIS AM-SITTING IN DAYROOM WITH FEMALE PEER AND WHEN GREETED BY NURSE BEGINS TO REPORT A LONG LIST OF COMPLAINTS ABOUT UNIT,FOOD,BED,TV ETC. MULTIPLE SOMATIC COMPLAINTS REPORTING DURING AM REASSESSMENT INCLUDING BOTH CONSTIPATION AND DIARRHEA AT ONCE-WHEN REQUESTED CLARIFICATION BECOMES ANGRY STATING "HOW SHOULD I KNOW I WAS ASLEEP"DENIES SI/HI/SH. REFUSED AM GROUPS REPORTING NOT FEELING WELL-STATING FEELS SICK TO STOMACH.GAIT STEADY WITHOUT ASSISTIVE DEVICES.
[2020-04-12 20:19] VITALS: BP 131/70
--- NOTE | 2020-04-13 05:20 | NUR ---
Assumed care of pt @ 1900. Pt calm et cooperative this shift. Took medications whole without difficulty. Ambulates with assistance of walker with somewhat steady gait. VSWNL. Health assessment with no abnormalities noted at present time. Denies SI/HI/AVH at present time. Isolated in room most of shift. Currently resting in bed with eyes closed. Will continue to monitor per unit protocol.
[2020-04-13 07:03] LABS: CALCIUM 8.2 mg/dL (8.5-10.1); POTASSIUM 3.9 mmol/L (3.5-5.1)
--- NOTE | 2020-04-13 08:27 | NUR ---
PT OUT IN DINING ROOM EARLY THIS AM DRINKING COFFEE. PT DENIES ANY PAIN. PT STATED SHE IS STILL HAVING SOME STOOLS. PT HAS BRIEF ON. PT USES WALKER WITH STAND-BY ASSIST. PT TOLERATING DIET, NO N/V. PT STATED SHE ISN'T PASSING ANY GAS OR BELCHING.
[2020-04-13 08:30] VITALS: BP 116/60
--- NOTE | 2020-04-13 08:40 | NUR ---
HAD TO CRUSH ANTIBIOTIC AND PUT IT IN YOGART IN ORDER FOR PATIENT TO SWALLOW IT BETTER.
[2020-04-13 08:45] VITALS: BP 116/60
[2020-04-13 19:21] VITALS: BP 102/52
--- NOTE | 2020-04-14 03:25 | NUR ---
04-13-20 CARE TRANSFERRED 1899. 1939 PT AAOX2, VSS, RR EVEN AND NONLABORED ON RA, PT DENIES ANY PAIN AND SI/HI. PT PLEASANT BUT EASLIER BECOMES CONFUSED, VERY COOPERATIVE AND REMAINS CALM. LATER ASSISTED PT DURING BATHROOM, AND PT STATED "why is this happening to me, I am ready to just go on and " PT SHOWS SOME HOPELESSNESS IN THIS AREA, PT WAS VERY RECEPTIVE TO DRINKING MORE WATER THROUGHOUT AWAKEN HOURS. DURING MEDICATION ADMIN NO DIFFICULTEIS. LATER ADJUSTED BED FOR PT COMFORT. PT SHOWS ZERO S/S OF ACUTE DISTRESS, PT WILL CONTINUE TO BE MONTIOR PER [facility] PROTOCOL.
[2020-04-14 12:33] VITALS: BP 132/78
--- NOTE | 2020-04-14 15:08 | NUR ---
1430 RESUMMED CARE FROM OVERNIGHT SHIFT THIS AM, PATIENT IN ROOM SLEEPING. I GOT PATIENT UP AND TOOK HER TO THE DAYROOM FOR BREAKFAST SHE TOOK HER MEDICATION WITHOUT INCIDENCE. PATIENTS ABDOMEN SOFT FLAT BOWEL SOUNDS PRESENT LUNG CLEAR. PATIENT LIKES TO STAY IN ROOM AND DOES NOT PARTICIPATE IN GROUPS. DR RICHEY HAS PUT PATIENT ON ROOM LOCKOUT FOR GROUPS, PATIENT WAS UPSET THAT SHE COULD NOT GO IN HER ROOM. PATIENT DENIES SI/HI/AH/VH AT PRESENT PATIENT ORIENTED TIMES 3. PATIENT IS CALM AND HAS MINIMAL INTERACTION WITH OTHER PATIENTS. PATIENT'S HEMMOROIDS IS SHRINKING AND THE PREPARATION H IS WORKING. WILL CONTINUE TO ENCOURAGE PATIENT TO PARTICIPATE AND SHE IS EATING BETTER. WILL CONTINUE TO MONITOR PATIENT FOR SAFETY AND BEHAVIORS.
[2020-04-14 19:15] VITALS: BP 103/48
[2020-04-14 22:27] VITALS: BP 103/48
--- NOTE | 2020-04-15 04:00 | NUR ---
Assumed care of patient this pm shift. Patient in good spirits, calm and cooperative. Patient takes medications whole with thin fluids. Patient denies hi/si. Patient ambulates with a walker. Falls precautions in place. Assessment shows no signs of acute distress. Vital signs stable. Patients affect is normal. We will continue to monitor per hospital policy.
[2020-04-15 07:45] VITALS: BP 131/63
--- NOTE | 2020-04-15 15:04 | NUR ---
AMAIRANI attempted to contact with the Pt's DPOA, Moira Darnell, concerning need for [place] memory care. As of this not AMAIRANI and Dr. Lujan have been unsucessful with connecting with Mr. Darnell. Several phone calls were made to both his cell phone and office phone. Voice mails for call backs were also made on 04/14/2020.
--- NOTE | 2020-04-15 15:50 | NUR ---
RT Progress Note- Lorie has not been active in both the milieu and recreation therapy groups since admission. She isolates to her room, and despite being on a room lockout, returns to her room via reasons such as "not feeling good" or needing to use the restroom. Lorie is sharp in tone and has poor attitude when interacting with recreation staff.
--- NOTE | 2020-04-15 17:16 | NUR ---
VISIBLE IN DAYROOM AT MEAL TIMES AND DID SIT IN BACK OF ROOM DUIRING AM RT GROUP-WHEN PROMPTED TO SIT CLOSER AND PARTICIPATE STATES "I CAN'T I AM SICK" OFFERS NO SPECIFIC COMPLAINTS DESPITE QUESTIONS ASKED STATING ONLY "I JUST FEEL SICK-I NEED HELP GOING TO THE BATHROOM" THIS NURSE WALKED WITH HER TO BR AND ATTEMPTED TO ASSIST ONTO TOILET PT STATES ANGRILY "I CAN DO I I NEED HELP GOING TO BATHROOM-TO MAKE IT COME OUT" IRRITABLE DYSPHORIC MOOD-ANGRY FACIAL EXPRESSION,ABRUPT RESPONSES. BS ACTIVE X 4-ABDOMEN SOFT AND [id number] DOCUMENTED HAVING BM ON SAT 04/12-SEVERAL DIARRHEA STOOLS STOOLS THROUGHOUT COURSE OF THAT DAY AFTER TAKING LAXATIVE. DISCUSSED WITH DURING ROUNDS. GAIT IS STEADY WITH USE OF ROLLER WALKER WHICH SHE OFTEN TIMES FORGETS TO USE SO REMAINS HIGH FALLS RISK-TOLD THIS RN AT 1700 TODAY "I CAME HERE TO SEE A FASHION SHOW AND I GOT STUCK HERE" "
[2020-04-15 19:20] VITALS: BP 122/61
--- NOTE | 2020-04-15 23:38 | NUR ---
Care assumed of patient at 1915: Patient laying in bed at start of shift, awake. Patient quite labile, easily agitated. Nurse entered room to introduce self, patient looked up and stated "don't you have all those stupid questions to ask me?!". Nurse informed patient she would be back to speak with her. Patient turned over then ignored nurse. Nurse entered room shortly after to complete assessment and assess vital signs. When asked about any concerns, patient stated for nurse to leave as her concern. No goal reported. Alert and oriented to person only. Unknown if this is accurate or non-compliance. Denies pain or discomfort. Denies SI/HI/AH/VH. Denies anxiety and depression. Answers with short "no" answers. Patient fixated on her bowels this evening. Offered HS snack. Reports she won't be able to eat until she has a BM. Later in the evening, nurse responded to bed alarm. Patient up without walker. Became agitated when provided education on using walker. Continues to refuse use of walker this evening. Patient did wipe her bum which showed a smear of BM. However, patient refused to sit on the toilet. Asked patient several times to try to sit on the toilet and have a BM. She simply states "It's not coming out". Patient frustrated with ludy care and linen change. Patient took HS medication whole without difficulty. Patient up a pacing the halls x2 this evening. Nurse provided walker and walked with patient. Patient stated "Are you ever going to leave me alone?". Education provided regarding fall risk and safety. Patient then stated "I guess I will just go back to my room so you will leave". Patient assisted back to bed and is resting quietly at this time.
[2020-04-16 08:00] VITALS: BP 122/61
--- NOTE | 2020-04-16 08:29 | NUR ---
PT SITTING IN DINING ROOM. PT TOOK MEDS. WITH SOME QUESTION AND ASKING IF SHE NEEDED TO TAKE ALL THESE MEDS. PT LUNGS CLEAR. PT UP WITH WALKER FAITHFULY. PT SMILES AT STAFF, NO COMPLAINTS.
--- NOTE | 2020-04-16 12:42 | NUR ---
ASSISTED PT TO BATHROOM, SHE DIDN'T KNOW IF SHE COULD MAKE IT. PT SAT ON TOILET, SMEAR OF STOOL IN BRIEF. PT UNABLE TO VOID OR HAVE BM. PT STATED SHE FELT LIKE HER STOMACH WAS CRAMPING. PALPATED LOWER ABD, FELT FIRM WILL BLADDER SCAN FOR URINE RETENTION.
--- NOTE | 2020-04-16 13:05 | NUR ---
BLADDER SCANNED PT IN BED AND GOT 1293ML OF URINE. ASSISTED PT TO BATHROOM. PT UNABLE TO SIT FOR A PERIOD OF TIME DUE TO PAIN, TRIED TO RUN WATER IN SINK TO ASSIST WITH VOIDING WITH NO SUCCESS.
--- NOTE | 2020-04-16 14:00 | NUR ---
STRAIGHT CATH WITH A 15 ESTONIAN CATH AND GOT OUT 1000ML OF TEA COLOR URINE THAT WAS CLEAR. PT STATED SHE FELT BETTER.
--- NOTE | 2020-04-16 14:03 | NUR ---
AMAIRANI spoke with Kelsey, [place] [facility] resident care provider , at [facility] [phone]. Kelsey informed that she has been in contact with Moira Darnell concerning the Pt move to [place] [facility] care. Kelsey infomred Pt can they can accept the Pt possibly Tuesday04/21/2020. Kelsey recareyeuested clinical notes, be faxed to [phone]. AMAIRANI faxed clinical notes to [facility]
--- NOTE | 2020-04-16 17:21 | NUR ---
PT OUT TO EAT DINNER, PUT A PILLOW UNDER HER BOTTOM. PT STATED THAT HELPED. PT HAVING ISSUES WITH BM DUE TO HEMMORROIDS PAIN.
--- NOTE | 2020-04-16 18:08 | NUR ---
PT SET BED ALARM ON AND USING WALKER TO AMBULATE OUT IN THE [place]. PT STATED SHE NEEDS TO GO TO THE HOSPITAL. TOLD PT SHE WAS IN THE HOSPITAL, PT STATED WELL THEY ARE NOT DOING ANYTHING FOR ME AND I DON'T KNOW WHAT TO DO. ENCOURAGED PT TO HAVE A BM AND SIT, PT DOESN'T SIT BUT 15 SEC ON COMMODE OR STOOL AND HAS TO GET UP. PT HAD SMALL SMEAR OF STOOL.
--- NOTE | 2020-04-16 18:40 | NUR ---
PT BLADDER SCANNED AND GOT 1000ML OF URINE IN BLADDER. OBTAINED ORDER FOR MEZA CATH. PLACED 16 LITHUANIAN MEZA TO DD WITH CLEAR YELLOW URINE OUT INTO THE BAG.
[2020-04-16 20:04] VITALS: BP 126/78
--- NOTE | 2020-04-17 05:56 | NUR ---
04-16-20 CARE TRANSFERRED 1899. 1939 PT AAOX2, VSS, RR EVEN AN NONLABORED ON RA, PT DENIES ANY PAIN AND SI/H. PT CATH INTACT, 1000ML OF YELLOW URINE EMPTIED, NO SEDIMENT OR ODOR NOTED. PT PRESENTS PLEASANT, CALM AND COOPERATIVE. DURING MEDICATION ADMIN PT HAD NO DIFFICULTIES. LATER ASSISTED PT WITH BED ADJUSTMENT FOR COMFORT. THEN 04-17-20 0550 100ML OF YELLOW URINE EMPTIED, NO SEDIMENT OR ODOR NOTED. ZERO S/S OF ACUTE DISTRESS NOTED, PT WILL CONTINUE TO BE MONITOR PER [facility].
--- NOTE | 2020-04-17 10:51 | NUR ---
0700AM-ACCEPT CARE OF PT FROM 7P-7A SHIFT. PT IS ALERTX2. ASSISTED UP TO DRESS AND COME TO BREAKFAST. FEEDS SELF SLOWLY. SMILES OCCASIONALLY . HAS A MEZA TO DD WITH MARCOS URINE.PT TAKES HER MEDS WHOLE WITHOUT DIFFICULTY.DENIES PAIN AT THIS TIME.AMBULATES IN [place] SLOWLY AFTER BREAKFAST.
[2020-04-17 11:52] VITALS: BP 125/50
[2020-04-17 12:00] VITALS: BP 125/50
[2020-04-17 12:07] VITALS: BP 125/50
--- NOTE | 2020-04-17 17:25 | NUR ---
1315- after lunch Pt c/o nausea and some emnesis but flushed it before staff could witness it.Zofran po taken with good results. Pt in bed most of pm but did attend 3pm group amb with walker. hurtado to dd with dimitris urine. Pt had KUB port on unit. is able to eat 100% of supper.
[2020-04-17 19:46] VITALS: BP 109/56
--- NOTE | 2020-04-18 04:19 | NUR ---
Assumed care of pt @ 1900. Pt calm et cooperative this shift. Took medications whole without difficulty. Ambulates the halls with assistance of walker with steady gait. VSWNL. health assessment with no abnormalities other than previously noted. Denies SI/HI/AVH at present time. Isolated in room most of shift. Currently resting in bed with eyes closed. Will continue to monitor per unit protocol.
[2020-04-18 07:00] VITALS: BP 133/70
--- NOTE | 2020-04-18 16:50 | NUR ---
AMAIRANI contacted Smita concerning Pt's having a hurtado. Smita stated it may be and issue and wanted to contact the DON concerning the matter. AMAIRANI informed the hurtado was placed due to retention and would need otpt follow up with a eurologist. Later AMAIRANI recieved a call back on the matter. Smita informed they may not be able to take the Pt back. Smita wanted to know if the Pt could manage the hurtado hersef and How long would the it be it. AMAIRANI did not have thae answers and contacted Dr. Neely to get questions answered. Dr. Neely requested to speak with [facility] VASQUE[facility]. AMAIRANI passed this information to Smita along with Dr. Neely's cell phone number. Smita again called back stating [facility] would accept the Pt back. Pt scheduled for discharge 04/21/2020 @ 1400. Roc[facility]le will provide transportation.
--- NOTE | 2020-04-18 19:36 | NUR ---
0700 ASSUMED CARE OF PATIENT, PATIENT IN BED AT THAT TIME. PATIENT OUT TO DAYROOM FOR BREAKFAST. PATIENT NGUYEN AND COOPERATIVE. MEDICATION TAKEN WHOLE WITHOUT DIFFICULTY. MEZA CATH INTACT WITH YELLOW URINE NOTED TO TUBING. PATIENT RETURNS TO ROOM AFTER EVERY MEAL TO REST. DENIES SI/HI. NO HALLUCINATIONS NOTED.
[2020-04-18 19:37] VITALS: BP 112/48
[2020-04-19 00:02] VITALS: BP 112/48
--- NOTE | 2020-04-19 05:03 | NUR ---
Assumed care of patient this pm shift. Patient in good spirits, calm and cooperative. Alert and oriented x3. Patients affect is happy, smiling. Patients assessment shows no signs of acute distress. Patient has hurtado in place, yellow urine in the bag. Patient takes medications whole with thin fluids. Patient ambulates via walker. Falls precautions in place. Patient had a bowel movement this evening. We will continue to monitor per policy.
[2020-04-19 08:51] VITALS: BP 118/61
--- NOTE | 2020-04-19 10:40 | NUR ---
0700 ASSUMED CARE OF PATIENT, PATIENT IN BED SLEEPING AT THAT TIME. OUT TO DAYROOM FOR BREAKFAST AT 0740. 0900 PATIENT IN ROOM RESTING IN BED. MEDICATIONS GIVEN WHOLE AFTER C/O TO MANY PILLS AND HOW SHE SHOULD NOT TAKE ALL AT ONCE. MEZA CATH INTACT WITH YELLOW URINE AND SEDIMENT NOTED. PATIENT DRINKING FLUIDS WELL. VS- BP 118/61, P 87, RESP 18, TEMP 97.9, O2 SATS 95%. HEMORRHOID OINTMENT APPLIED, SWELLING STILL PRESENT. PATIENT DOES HAVE DIFFICULTY SITTING AND STANDING DUE TO HEMMORROIDS. AMB WELL WITH WALKER. 1000 COVID TEST COMPLETED AND TO LAB. WILL CONTINUE TO OBSERVE
[2020-04-19 19:45] VITALS: BP 114/55
--- NOTE | 2020-04-20 05:11 | NUR ---
Assumed care of pt @ 1900. Pt calm et cooperative with robert sethimile this shift. Took medications whole without difficulty. Ambulates with assistance of walker with steady gait. VSWNL. Health assessment with no abnormalities other than previously noted. Denies SI/HI/AVH at present time. Pt had a long conversation with this nurse about why she is currently in this facility. 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 Pt states that someone contacted her regarding putting on a show here and she made an appointment to meet with them but when she met with them, they stated that they didn't have the money for the show. Pt then states that she contracted "someone's sickness" and ended up staying here. Pt also c/o "poor management" here and that we need to have someone investigating the waiting room to make sure the people are taken care of better. Pt currently resting in bed with eyes closed. Will continue to monitor per unit protocol.
[2020-04-20 07:42] VITALS: BP 121/51
[2020-04-20 08:30] VITALS: BP 121/51
--- NOTE | 2020-04-20 08:57 | NUR ---
PT SITTING IN DINING. PT TOOK MEDS THIS AM WITHOUT ANY ISSUES. PT HAS MEZA TO DD WITH YELLOW URINE AND HAS SOME SEDIMENT IN THE TUBING. PT LUNGS CLEAR. PT ORIENTED TO SELF AND HOSPITAL. PT USES WALKER FAITHFULY WITH STEADY GAIT. PT HAS HEMMORROIDS. PT HAVING SOFT STOOLS, PT INCONT IN BRIEF WITH SOFT STOOL.
--- NOTE | 2020-04-20 10:30 | NUR ---
SPOKE WITH DR. NUNEZ, HE SAYS TO KEEP MEZA IN AND PT WILL HAVE OUT PT UROLOGY APT, PT WILL GO HOME WITH MEZA.
--- NOTE | 2020-04-20 15:00 | NUR ---
PT NEEDED ASSISTANCE WITH CHANGING HER BRIEF, PT HAS MORE FORMED SOFT STOOL IN BRIEF AND A SMALL STOOL IN TOILET. PT STATED SEE THATS ALL I DID. PT ALSO STATED SHE WAS TRYING TO URINATE, TOLD PT THAT SHE HAS A MEZA AND THAT IT IS DRAINING URINE, CLEANED AROUND TUBE TWICE TODAY.
[2020-04-20 19:04] VITALS: BP 103/42
[2020-04-20 20:00] VITALS: BP 103/42
--- NOTE | 2020-04-21 04:39 | NUR ---
PATIENT AWOKE WITH C/O ABDOMINAL PAIN, AND NAUSEA. MYLANTA 15CC PO GIVEN AND ZOFRAN 4MG SL GIVEN AT 0345. MOIST WARM PACK MADE OF TOWELS PLACED ON PATIENT'S ABDOMEN WITH SOME RELIEF. STATES SHE THINKS SHE HAD BM IN BRIEF. PT JUST HAD BM SMEAR THIS TIME. PT GOWN AND SHIRT CHANGED D/T WET FROM MOIST WARM PACK. PATIENT REPOSTIONED IN BED AND IS RESTING NOW. BED IN LOW POSITION AND BED ALARM IS ON.
--- NOTE | 2020-04-21 06:19 | NUR ---
WENT IN TO GIVE PATIENT HER MORNING MED AND SHE WAS LAYING ON HER LEFT SIDE WITH COVERS UP OVER HER SHOULDERS AND WAS SHAKING. SHE STATES SHE CAN'T STOP SHAKING. SHE STATES SHE IS FEELING COLD. PT HAD 2 BLANKETS AND A SHEET ON. I TURNED UP HER HEAT IN HER ROOM FROM 72 TO 76 AND PLACED ANOTHER COUPLE OF BLANKETS ON HER. SHE WAS AFEBRILE AT 97.6. PATIENT STOPPED SHAKING WHEN GIVING HER MORNING THYROID MED. PATIENT ASKED ME TO HOLD HER TIGHT SO SHE COULD STOP SHAKING. COULD NOT GET HER TO ANSWER WHEN i ASKED HER IF SHE WAS FEELING ANXIOUS ABOUT ANYTHING. I RUBBED HER BACK AND SHOULDERS FOR A BIT AND SHE FELL BACK TO SLEEP. EMPTIED PATIENT'S MEZA CATHETER WITH 1250 OUT. PATIENT RESTING AND BED IN LOW POSITION AND BED ALARM IS ON.
[2020-04-21] MEDS ORDERED: FLOMAX0.4 MG PO (08:54)
[2020-04-21] MEDS ORDERED: CARDIZEM CD 18180 M3 PO (08:58)
[2020-04-21] MEDS ORDERED: MAGNESIUM CITR296 ML PO (09:00)
[2020-04-21] MEDS ORDERED: CALTRATE-600 W1 EACH PO (09:00)
[2020-04-21] MEDS ORDERED: MILK OF MA2400 MG/11 PO (09:01)
[2020-04-21] MEDS ORDERED: PEPCID20 MG PO (09:01)
[2020-04-21] MEDS ORDERED: SENNA-TIME S T1 EACH PO (09:01)
[2020-04-21] MEDS ORDERED: VITAMIN D3125 MC1 PO (09:02)
[2020-04-21 09:14] VITALS: BP 147/68
--- NOTE | 2020-04-21 10:37 | NUR ---
ACCEPTED CARE OF PT FROM 7P-7A SHIFT.PT IN BED BUT AROUSES WITHOUT DIFFICULTY. UP IN [place] WITH WALKER TO BREAKFAST. SMILES AT STAFF, QUIET AND POLIETE THIS AM. A BIT RELUCTANT TO TAKE HER MEDS BUT DOES SO WHOLE WITH GENTLE ENCOURAGEMENT. EATS POORLY AT AM MEAL. DRINKS ENSURE. TO BE DISCHARGED TODAY AT 2PM TO [facility]. PT HAS A MEZA TO DD WITH MARCOS URINE WITH SOME SEDIMENT NOTED.CARLOS FERNÁNDEZ CALLED AND MSG LEFT FOR HIM TO RETURN CALL TO CONSENT TO DISCHARGE INSTRUCTIONS. PT TEMP AT THIS TIME IS 99F ORALLY.
== END 2020-04-21 14:25 | disposition home or self-care (01) | DRG 57 ==
LOC: SBH
PROVIDERS: Internal Medicine; ADMIT Psychiatry & Neurology Psychiatry; ATTEND Psychiatry & Neurology Psychiatry
DX: G30.9 Alzheimer's disease, unspecified (principal); F01.51 Vascular dementia, unspecified severity, with behavioral disturbance; N18.30 Chronic kidney disease, stage 3 unspecified; B95.2 Enterococcus as the cause of diseases classified elsewhere; G93.40 Encephalopathy, unspecified; F02.81 Dementia in other diseases classified elsewhere, unspecified severity, with behavioral disturbance; N39.0 Urinary tract infection, site not specified; E46 Unspecified protein-calorie malnutrition; K95.09 Other complications of gastric band procedure; Z68.1 Body mass index [BMI] 19.9 or less, adult; E03.9 Hypothyroidism, unspecified; F41.1 Generalized anxiety disorder; Z60.2 Problems related to living alone; R33.9 Retention of urine, unspecified; E87.6 Hypokalemia; B96.1 Klebsiella pneumoniae [K. pneumoniae] as the cause of diseases classified elsewhere; I12.9 Hypertensive chronic kidney disease with stage 1 through stage 4 chronic kidney disease, or unspecified chronic kidney disease; Z20.828 Contact with and (suspected) exposure to other viral communicable diseases; B96.20 Unspecified Escherichia coli [E. coli] as the cause of diseases classified elsewhere; N28.89 Other specified disorders of kidney and ureter; Z91.040 Latex allergy status; Z90.710 Acquired absence of both cervix and uterus; Z90.49 Acquired absence of other specified parts of digestive tract
CPT/HCPCS: 10880